=== PATIENT | female | born 1960 | race Caucasian/White ===

== ENCOUNTER → 2017-10-22 10:42 | Outpatient (CLI) | payer SELFPAY ==
[2017-10-22 13:00] LABS: Vitamin D,25 Hydroxy 30.5 ng/mL (19.95-100.01)
== END ==
PROVIDERS: Family Provider Family Medicine; PCP Family Medicine; Visit Provider Family Medicine
DX: E55.9 Vitamin D deficiency, unspecified (principal)
CPT/HCPCS: 36415; 82306

== ENCOUNTER → 2017-11-19 15:08 | Outpatient (CLI) | payer SELFPAY ==
--- NOTE | 2017-11-19 09:30 | LES_PTH ---
PATIENT: SHARON MARTINES LOC: [facility] U#:[id number] AGE/SX: 65/F ROOM: RE11/19/[address]: Dr. Alexandre Madden MD : 1960 BED: DIS: SPEC #: [id number] RECD: 11/19/17 12:10 STATUS: LOLLY BRII #: [id number] MYRON: 11/19/17 09:[address]: Alexandre Madden DEPT: SURGICAL PATHOLOGY RECD BY: Gabby Arellano Tissues: Skin of back, NOS Procedures: Surgery Specimen Level IV HEADER OPERATION: Suspicious back lesion removal PRE-OP DIAGNOSIS: Suspicious back lesion TISSUE SUBMITTED: Back lesion MICROSCOPIC DIAGNOSIS Back lesion, shave biopsy: Seborrheic keratosis. SJ:mercy 11/20/17 MICROSCOPIC DESCRIPTION Slides are reviewed. GROSS DESCRIPTION Received in fixative is one container labeled with the patient's name and designated back lesion. The specimen consists of an irregular fragment of hannah excised skin measuring 0.7 x 0.5 x 0.2 cm. The specimen is inked and totally submitted in one cassette for postfixation sectioning. / AM:mercy 11/19/17 TC:1 CPT: 19678
== END ==
PROVIDERS: Family Provider Family Medicine; PCP Family Medicine; Visit Provider Family Medicine
DX: L82.1 Other seborrheic keratosis (principal)
CPT/HCPCS: 88305

== ENCOUNTER 2018-12-09 06:30 | Day surgery (SDC) | payer SELFPAY ==
[2018-12-09 06:52] VITALS: BP 123/76; PULSE 72; RESP 16; TEMP 36.5; O2SAT 100; BMI 28.5
--- NOTE | 2018-12-09 07:54 | H&P.OPEN ---
History of Present Illness Date of Admission: 12/09/18 The patient is a 58 year old F presents for screening colonoscopy. Patient states she had a colonoscopy 5 years ago which was negative. However mother diagnosed with colon cancer. Patient's mother was diagnosed at age 76. Patient states she has daily bowel movements denies any blood denies any abdominal pain. Past Medical/Surgical History - Planned Operation Planned Operative Procedure/s: COLONOSCOPY Date of Operative Procedure: 12/09/18 Permit Signed: Yes S.O.S: No Is This Patient Having a Total Joint: No - Previous Hospitalizations/Surgeries HX Hospitalizations: No HX of Surgeries: GALLBLADDER Any Problems With Anesthesia: Yes - N&V You/Your Family Experience Fever (Hyperthermia) With Anes: No Cholinesterase deficiency: No - Cardiovascular Hx Chest Pain within Last 2 months: No Hx of Irregular Heartbeat and/or Afib: No Hx Heart Attack: No Hx Congestive Heart Failure: No Hx Rheumatic Fever: No Hx Hypertension: No Hx Internal Defibrillator: No Hx Pacemaker: No Hx Cardiac Catheterization: No Hx Cardiac Surgery/Stents/Etc.: No Hx Stress Test: No HX Edema: No Hx Pain in Legs when Walking/Leg Cramps: No - Respiratory Chronic Cough: No HX of Shortness of Breath: No Hoarseness: No Hx Chronic Obstructive Pulmonary Disease (COPD): No Hx Asthma: No Hx Emphysema: No Hx Sleep Apnea: No Hx Oxygen Use at Home: No Hx Respiratory Tract Infection/Cold (presently): No Do You Snore Loudly (louder than talking or can be heard): No Do You Often Feel Tired/ Fatigued/ Sleepy Dring Daytime?: No Has Anyone Observed You Stop Breathing During Sleep?: No Result (for STOP score): Negative Hx Smoking: No Smoking Status: Never smoker - Gastrointestinal Hx Gastroesophageal Reflux: No Hx Gastrointestinal Disorders: No Hx Gastrointestinal Bleed: No Hx Ulcer: No Hx Hiatal Hernia: No Difficulty Chewing/Swallowing: No Recent Onset of Swallowing Problems: No Special diet followed at home: No Hx Unplanned Weight Loss of 20#: No HX Unplanned Weight Gain of 20#: No - Neurological Hx Seizures: No HX Syncope/Blackout Spells/Unconsciousness: No Hx CVA/Stroke: No Hx Transient Ischemic Attacks (TIA): No Hx Multiple Sclerosis: No Hx Parkinson's Disease: No Hx Head/Neck Injury: No Hx Headaches: No Hx Back Injury/Pain: Yes - CHRONIC, BULGING DISC Recent Onset of Speech Difficulty: No Restless Legs: No Does patient have nerve stimulator: No - Blood Disorder Hx Leukemia: No Bleeding Tendencies: No Hx Deep Vein Thrombosis: No Hx High Cholesterol: No Blood Transmitted Disease: No Hx Hepatitis: No Hx Cirrhosis: No Hx Anemia: No Hx Blood Disorders: No - Reproduction : No Is Patient Lactating: No Hx Hysterectomy: No Hx Tubal Ligation: No Are You Post Menopause: Yes - Genitourinary Hx Renal Disease: No - Musculoskeletal Hx Arthritis: No Hx Rheumatoid Arthritis: No Hx Gout: No Recent Onset of an Orthopedic Problem: No - Endocrine Hx Diabetes: No Thyroid Disease: No Hx Steroid Therapy: No - Psycho/Social Hx Substance Use: No Hx Alcohol Use: No Hx Anxiety: No Hx Depression: No Mental Illness: No Hx Dementia: No - Miscellaneous Hx Cancer: No Recent Exposure to Contagious Disease: No Active MRSA: No Hx of C-Diff: No Any Loose Teeth: No Allergies No Known Allergies Allergy (Verified 12/07/18 08:38) - Discharge Is Pt Admitted From a Half-Way, or a Half-Way: No Who Could Help: DAUGHTER After D/C, Where Do you Plan to Go: Return Home - Physical Exam General: Alert, Oriented x3, Cooperative, No apparent distress HEENT: Atraumatic Lungs: Normal air movement Cardiovascular: Regular rate Abdomen: Soft, Non Tender, Non-Distended Extremities: No clubbing, No cyanosis, No edema Neurological: Cranial nerves II-XII grossly intact Psych/Mental Status: Normal Affect Vital Signs Temp Pulse Resp BP Pulse Ox 97.7 F L 72 16 123/76 H 100 12/09/18 06:52 12/09/18 06:52 12/09/18 06:52 12/09/18 06:52 12/09/18 06:52 Oxygen Delivery Method Room Air Weight: 166 lb 3.2 oz Body Mass Index (BMI) 28.5 Assessment/Plan 58-year-old female for screening colonoscopy, positive family history Mom diagnosed at age 76 Surgery Risks - Colonoscopy I discussed with the patient the risks of the procedure: Yes Risks Include but are not Limited To: Risks include but are not limited to: Bleeding, perforation requiring further surgery, inability to complete colonoscopy requiring barium enema. Patient had no further questions at this time.
[2018-12-09 08:23] VITALS: BP 101/75; BP 123/76; PULSE 61; RESP 16; TEMP 36.3; O2SAT 96
--- NOTE | 2018-12-09 08:23 | OP.ENDO_ITS ---
12/09/2018 Alexandre Madden MD [address] [id number] Re : Colonoscopy procedure for Dinora Capellan Dear Dr. Madden This procedure was performed on Sunday, December 09, 2018. My impressions and recommendations are as follows: Impressions : - The entire examined colon is normal on direct and retroflexion views. - No specimens collected. Recommendations : - Discharge patient to home. - Continue present medications. - Repeat colonoscopy in 10 years for screening purposes. My findings are described in the full procedure note, which is enclosed. If I can be of further assistance, please feel free to contact me at Doctor phone number(s): , Work: . Sincerely, MD Jelly Byrd MD 12/09/2018 8:23:07 AM This report has been signed electronically.
[2018-12-09 08:28] VITALS: BP 101/68; BP 123/76; PULSE 62; RESP 16; O2SAT 96
[2018-12-09 08:33] VITALS: BP 102/76; BP 123/76; PULSE 57; RESP 16; O2SAT 95
[2018-12-09 08:38] VITALS: BP 106/71; BP 123/76; PULSE 58; RESP 16; TEMP 36.3; O2SAT 96
[2018-12-09 09:10] VITALS: BP 123/76
== END 2018-12-09 09:16 | disposition home or self-care (01) ==
LOC: EN 06:31 → AC 06:35
PROVIDERS: Family Provider Family Medicine; PCP Family Medicine; Referring Provider Surgery; Visit Provider Surgery
PROC: 0DJD8ZZ Inspection of Lower Intestinal Tract, Via Natural or Artificial Opening Endoscopic (ICD-10-PCS; CPT 45378; principal; 2018-12-09 07:55)
DX: Z12.11 Encounter for screening for malignant neoplasm of colon (principal); Z80.0 Family history of malignant neoplasm of digestive organs
CPT/HCPCS: 45378; J7120

== ENCOUNTER → 2018-12-15 09:59 | Outpatient (CLI) | payer SELFPAY ==
[2018-12-09 06:52] VITALS: BMI 28.5
[2018-12-15 13:12] LABS: Vitamin D,25 Hydroxy 26.4 ng/mL (29.95-100.01)
[2018-12-15 13:35] LABS: Anion Gap 5 (5-15); BUN 17 mg/dL (7-18); BUN/Creat Ratio 25.9 RATIO (10-20); Calcium,Total 8.9 mg/dL (8.5-10.1); Chloride 110 mmol/L (98-107); Cholesterol 185 mg/dL (200); Creatinine, Serum 0.66 mg/dL (0.55-1.02); EST Glomerular Filtration Rate 99 mL/min (>60); Est Glom Filt Rate - Afr Amer 119 mL/min (>60); Glucose 88 mg/dL (74-106); High Density Lipoprotein 56 mg/dL; Potassium 4.2 mmol/L (3.5-5.1); Sodium Level 140 mmol/L (136-145); Thyroid Stim Hormone (TSH) 1.83 uIU/mL (0.358-3.74); Triglycerides 120 mg/dL; Very Low Density Lipoprotein 24 mg/dL (5-40)
== END ==
PROVIDERS: Family Provider Family Medicine; PCP Family Medicine; Referring Provider Family Medicine; Visit Provider Family Medicine
DX: Z00.00 Encounter for general adult medical examination without abnormal findings (principal); E55.9 Vitamin D deficiency, unspecified
CPT/HCPCS: 36415; 80048; 80061; 82306; 84443

== ENCOUNTER → 2019-11-26 10:08 | Outpatient (CLI) | payer SELFPAY ==
--- NOTE | 2019-11-26 10:45 | MRI_ITS ---
STUDY: MRI LUMBAR SPINE WITHOUT CONTRAST REASON FOR EXAM: Female, 59 years old. Back pain, sciatica in L leg TECHNIQUE: Standardized fat and water weighted pulse sequences were obtained in the sagittal and axial planes. COMPARISON: None FINDINGS: Lumbar lordosis preserved. No significant scoliosis. Conus medullaris terminates normally at the L1 level. No acute fracture, no dislocation. No acute bone destruction. Normal paraspinal muscles. Normal aorta. Normal retroperitoneum. Sacrum intact. T12-L1: Normal endplates. Normal disc height, hydration and morphology. Normal bilateral facet joints. Normal central canal and bilateral lateral recesses. Normal bilateral intervertebral neural foramina. L1-2: Normal endplates. Shallow disc bulge. Normal bilateral facet joints. Normal central canal and bilateral lateral recesses. Neural foraminal narrowing without impingement. L2-3: Mild/moderate endplate spondylosis. Shallow disc bulge. Normal bilateral facet joints. Normal central canal and bilateral lateral recesses. Neural foraminal narrowing without impingement. L3-4: Normal endplates. Shallow disc bulge. Normal bilateral facet joints. Normal central canal and bilateral lateral recesses. Neural foraminal narrowing without impingement. L4-5: Normal endplates. Disc bulge without central canal narrowing. Normal bilateral facet joints. Bilateral lateral recess narrowing with contact of the left ascending L5 nerve root (axial image 7 series 5). Neural foraminal narrowing without impingement. L5-S1: Normal endplates. Disc bulge, left paracentral annular fissure, without central canal narrowing. Normal bilateral facet joints. Normal central canal and bilateral lateral recesses. Normal bilateral intervertebral neural foramina. 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
== END ==
PROVIDERS: PCP Family Medicine; Referring Provider Family Medicine; Visit Provider Family Medicine
DX: M54.9 Dorsalgia, unspecified (principal); G89.29 Other chronic pain
CPT/HCPCS: 72148

== ENCOUNTER → 2020-06-26 09:15 | Outpatient (CLI) | payer SELFPAY ==
[2020-06-26 11:15] LABS: Anion Gap 8 (5-15); BUN 14 mg/dL (7-18); BUN/Creat Ratio 21.3 RATIO (10-20); Calcium,Total 9.7 mg/dL (8.5-10.1); Chloride 107 mmol/L (98-107); Cholesterol 176 mg/dL (200); Creatinine, Serum 0.66 mg/dL (0.55-1.02); EST Glomerular Filtration Rate 98 mL/min (>60); Est Glom Filt Rate - Afr Amer 119 mL/min (>60); Glucose 83 mg/dL (74-106); High Density Lipoprotein 73 mg/dL; Potassium 3.7 mmol/L (3.5-5.1); Sodium Level 142 mmol/L (136-145); Triglycerides 96 mg/dL; Very Low Density Lipoprotein 19 mg/dL (5-40)
[2020-06-26 21:08] LABS: Vitamin D,25 Hydroxy 36.8 ng/mL
== END ==
PROVIDERS: PCP Family Medicine; Referring Provider Family Medicine; Visit Provider Family Medicine
DX: Z00.00 Encounter for general adult medical examination without abnormal findings (principal)
CPT/HCPCS: 36415; 80048; 80061; 82306

== ENCOUNTER → 2021-05-30 15:03 | Outpatient (CLI) | payer SELFPAY ==
--- NOTE | 2021-05-30 15:31 | MRI_ITS ---
STUDY: MR Spine Lumbar W/O Contrast 05/30/2021 5:05 PM REASON FOR EXAM: Female, 60 years old. CHRONIC BACK PAIN, left hip pain TECHNIQUE: MR Spine Lumbar W/O Contrast Standardized fat and water weighted pulse sequences were obtained. COMPARISON: None FINDINGS: Normal lumbar lordosis. There is no substantial scoliosis. Normal conus medullaris that terminates at the L1. L1-2: Loss of intervertebral disc height. There is endplate spondylosis of the vertebral body. Normal central canal and intervertebral neuroforamina. There is bilateral facet arthropathy. L2-3: Loss of intervertebral disc height. There is endplate spondylosis of the vertebral body. Normal central canal and intervertebral neuroforamina. There is bilateral facet arthropathy. Discogenic endplate changes. L3-4: Loss of intervertebral disc height. There is endplate spondylosis of the vertebral body. Normal central canal and intervertebral neuroforamina. There is bilateral facet arthropathy. There is bilateral ligamentum flavum thickening. L4-5: Loss of intervertebral disc height. There is endplate spondylosis of the vertebral body. Normal central canal and intervertebral neuroforamina. There is bilateral facet arthropathy. There is bilateral ligamentum flavum thickening. L5-S1: Loss of intervertebral disc height. There is endplate spondylosis of the vertebral body. Mild right neural foraminal stenosis. No spinal stenosis. There is bilateral facet arthropathy. There is bilateral ligamentum flavum thickening. Posterior disc bulge. Normal visualized sacral ala.Partially visualized bilateral hydronephrosis. Normal visualized paraspinous soft tissue structures. MRI/Spine Lumbar (Routine) IMPRESSION: Multilevel degenerative changes, as described above. Partially visualized bilateral hydronephrosis. Electronically Signed: Randell Dumont MD at 17:09 EDT , Service support ,
--- NOTE | 2021-05-30 15:31 | MRI_ITS ---
EXAM: MR CERVICAL SPINE WITHOUT INTRAVENOUS CONTRAST CLINICAL INDICATION: NECK PAIN, headache, tingling left arm TECHNIQUE: Multiplanar and multisequence MR images of the cervical spine without intravenous contrast were performed. This report was created using [employer] report [employer] technology. COMPARISON: None. FINDINGS: VERTEBRAE: Unremarkable. Normal vertebral bodies and posterior elements. Normal alignment. Normal craniocervical junction and cervicothoracic junction. No spondylolisthesis. There is preservation of the normal cervical lordosis. SPINAL CORD: Unremarkable in signal and morphology. SOFT TISSUES: Unremarkable. No prevertebral soft tissue swelling. LYMPH NODES: Unremarkable. There is no cervical adenopathy. DISCS/SPINAL CANAL/NEURAL FORAMINA: C2-C3: Unremarkable. Normal disc height and morphology. Normal spinal canal and neuroforamina. C3-C4: Unremarkable. Normal disc height and morphology. Normal spinal canal and neuroforamina. C4-C5: Unremarkable. Normal disc height and morphology. Normal spinal canal and neuroforamina. C5-C6: Unremarkable. Normal disc height and morphology. Normal spinal canal and neuroforamina. C6-C7: C6-7: Small central disc bulge. No spinal stenosis. C7-T1: Unremarkable. Normal disc height and morphology. Normal spinal canal and neuroforamina. MRI/Spine Cervical (Routine) IMPRESSION: Mild degenerative changes at C6-7. Electronically Signed: Randell Dumont MD at 17:05 EDT , Service support ,
== END ==
PROVIDERS: PCP Family Medicine; Referring Provider Family Medicine; Visit Provider Family Medicine
DX: M54.2 Cervicalgia (principal); M54.9 Dorsalgia, unspecified
CPT/HCPCS: 72141; 72148